=== PATIENT | female | born 1940 | race Caucasian/White ===

== ENCOUNTER 2022-02-10 07:52 | Day surgery (SDC) | payer MEDICARE, OTHER ==
[2022-02-10] MEDS ORDERED: Sodium Chloride 0.9% 10 ML Syringe FLUSH PRN (08:00)
[2022-02-10] MEDS: Lactated Ringers 1,000 ML IV SCH (08:30)
[2022-02-10] MEDS ORDERED: Midazolam 1 MG/ML 2 ML SDV ONE (08:48)
[2022-02-10] MEDS ORDERED: Propofol 200 MG/20 ML SDV ONE (08:48)
== END 2022-02-10 11:06 | disposition home or self-care (01) ==
LOC: KA.SDS 07:52
PROVIDERS: ATTEND Family Medicine
DX: Z12.11 Encounter for screening for malignant neoplasm of colon (principal); K64.8 Other hemorrhoids; K64.4 Residual hemorrhoidal skin tags; K57.30 Diverticulosis of large intestine without perforation or abscess without bleeding; F17.210 Nicotine dependence, cigarettes, uncomplicated; F41.9 Anxiety disorder, unspecified; J43.2 Centrilobular emphysema; E78.49 Other hyperlipidemia; E66.3 Overweight; G47.33 Obstructive sleep apnea (adult) (pediatric); Z98.890 Other specified postprocedural states; Z68.25 Body mass index [BMI] 25.0-25.9, adult; Z79.811 Long term (current) use of aromatase inhibitors; Z79.52 Long term (current) use of systemic steroids; Z79.51 Long term (current) use of inhaled steroids; Z80.0 Family history of malignant neoplasm of digestive organs; Z79.899 Other long term (current) drug therapy; Z20.822 Contact with and (suspected) exposure to COVID-19
CPT/HCPCS: 00812; J2250; J2704; J7120

== ENCOUNTER 2024-04-01 07:01 | Inpatient (IN) | payer MEDICARE, OTHER ==
[2024-04-01] MEDS ORDERED: Sodium Chloride 0.9% 10 ML Syringe FLUSH PRN (07:26)
[2024-04-01 07:40] LABS: BASOPHILS ABSOLUTE AUTO 0.04 10^3/uL (0.00-0.10); BASOPHILS PERCENT AUTO 0.4 % (0.0-1.0); EOSINOPHILS ABSOLUTE AUTO 0.16 10^3/uL (0.10-0.30); EOSINOPHILS PERCENT AUTO 1.5 % (1.0-3.0); HEMATOCRIT 36.8 % (37.0-47.0); HEMOGLOBIN 12.2 g/dL (12.0-16.0); IMMATURE GRAN ABSOLUTE AUTO 0.02 10^3/uL (0.00-0.50); IMMATURE GRAN PERCENT AUTO 0.2 % (0.0-5.0); LYMPHOCYTES ABSOLUTE AUTO 0.95 10^3/uL (1.00-4.00); LYMPHOCYTES PERCENT AUTO 9.2 % (20.0-40.0); MEAN CORPUSCULAR HEMOGLOBIN 30.7 pg (27.0-31.0); MEAN CORPUSCULAR HGB CONC 33.2 g/dL (32.0-36.0); MEAN CORPUSCULAR VOLUME 92.7 fL (82.0-92.0); MEAN PLATELET VOLUME 8.4 fL (7.4-10.4); MONOCYTES ABSOLUTE AUTO 1.09 10^3/uL (0.10-0.80); MONOCYTES PERCENT AUTO 10.5 % (2.0-8.0); NEUTROPHILS ABSOLUTE AUTO 8.08 10^3/uL (2.50-7.00); NEUTROPHILS PERCENT AUTO 78.2 % (50.0-70.0); PLATELET COUNT,PLT 307 10^3/uL (150-400); RED BLOOD CELL COUNT 3.97 10^6/uL (3.80-5.50); RED CELL DISTRIBUTION WIDTH 13.4 % (11.5-14.5); WHITE BLOOD CELL COUNT,WBC 10.34 10^3/uL (5.00-10.00)
[2024-04-01 08:00] LABS: ALBUMIN 2.37 g/dL (3.40-5.00); ANION GAP 10.6 mmol/L (5-15); BILIRUBIN TOTAL 0.6 mg/dL (0.2-1.0); C-REACTIVE PROTEIN 7.28 mg/dL (0.00-0.50); CALCIUM 8.1 mg/dL (8.7-10.3); CARBON DIOXIDE,CO2 28.9 mmol/L (21.0-32.0); CREATININE 0.72 mg/dL (0.51-1.17); EST CRCL DRUG DOSING (CG) 56.39 mL/min; POTASSIUM,K 3.5 mmol/L (3.5-5.1); PROTEIN TOTAL,TP 6.5 g/dL (6.4-8.2)
[2024-04-01 08:49] LABS: APPEARANCE,URINE CLEAR (CLEAR); BILIRUBIN,URINE NEGATIVE (NEGATIVE); COLOR,URINE YELLOW (YELLOW); GLUCOSE,URINE NEGATIVE (NEGATIVE); KETONES,URINE TRACE mg/dL (NEGATIVE); LEUKOCYTE ESTERASE,URINE NEGATIVE (NEGATIVE); NITRITE,URINE NEGATIVE (NEGATIVE); OCCULT BLOOD,URINE NEGATIVE (NEGATIVE); PROTEIN,URINE NEGATIVE (NEGATIVE); UROBILINOGEN,URINE 0.2 E.U./dL (0.2-1.0)
[2024-04-01 08:59] LABS: BACTERIA,URINE RARE /HPF (NONE TO FEW); EPITHELIAL CELLS,URINE RARE /LPF; RBC,URINE 0-5 /HPF (0-5); WBC,URINE 0-5 /HPF (0-5)
[2024-04-01] MEDS ORDERED: Sodium Chloride 0.9% 100 ML IV SCH (09:00)
[2024-04-01] MEDS: cefTRIAXone 2 GM Vial IVPUSH ONE (09:08)
[2024-04-01] MEDS: Azithromycin 500 MG in Sodium Chloride 0.9% 250 ML IV ONE (09:42)
[2024-04-01] MEDS ORDERED: Docusate Sodium 100 MG Cap PO PRN (10:32)
[2024-04-01] MEDS ORDERED: Ondansetron 4 MG/2 ML SDV IV PRN (10:32)
[2024-04-01] MEDS ORDERED: Ondansetron 4 MG Tab.DIS PO PRN (10:32)
[2024-04-01] MEDS ORDERED: Melatonin 3 MG Tab PO PRN (10:32)
[2024-04-01] MEDS ORDERED: AZELASTINE NAS PRN (10:39)
[2024-04-01] MEDS ORDERED: methylPREDNISolone Sod Succ 125 MG in Sodium Chloride 0.9% 250 ML IV SCH (11:30)
[2024-04-01] MEDS ORDERED: Cefepime 1 GM in Sodium Chloride 0.9% 50 ML IV SCH (11:30)
[2024-04-01] MEDS: methylPREDNISolone Sod Succ 125 MG in Sodium Chloride 0.9% 250 ML IV SCH (11:41)
[2024-04-01] MEDS: Acetaminophen 325 MG Tab PO PRN (13:35)
[2024-04-01] MEDS: Albuterol 0.083% 2.5 MG/3 ML Neb Soln NEB PRN (13:35)
[2024-04-01] MEDS: Tiotropium Bromide 4 GM Inhalation Spray (2.5mcg/1 dose; 10 doses) INH SCH (13:59)
[2024-04-01] MEDS: Albuterol/Ipratropium 3.0-0.5 MG/3 ML Neb Soln NEB SCH (16:58)
[2024-04-01] MEDS: Escitalopram 10 MG Tab PO SCH (20:57)
[2024-04-01] MEDS: Doxycycline Monohydrate 100 MG Cap PO SCH (20:57)
[2024-04-01] MEDS: Cefepime 1 GM in Sodium Chloride 0.9% 50 ML IV SCH (21:17)
[2024-04-01] MEDS: Sodium Chloride 0.9% 10 ML Syringe FLUSH PRN (21:20)
[2024-04-02 06:57] LABS: BASOPHILS ABSOLUTE AUTO 0.01 10^3/uL (0.00-0.10); BASOPHILS PERCENT AUTO 0.1 % (0.0-1.0); HEMATOCRIT 34.6 % (37.0-47.0); HEMOGLOBIN 11.3 g/dL (12.0-16.0); IMMATURE GRAN ABSOLUTE AUTO 0.04 10^3/uL (0.00-0.50); IMMATURE GRAN PERCENT AUTO 0.3 % (0.0-5.0); LYMPHOCYTES ABSOLUTE AUTO 0.71 10^3/uL (1.00-4.00); LYMPHOCYTES PERCENT AUTO 6.1 % (20.0-40.0); MEAN CORPUSCULAR HEMOGLOBIN 30.5 pg (27.0-31.0); MEAN CORPUSCULAR HGB CONC 32.7 g/dL (32.0-36.0); MEAN CORPUSCULAR VOLUME 93.3 fL (82.0-92.0); MEAN PLATELET VOLUME 8.6 fL (7.4-10.4); MONOCYTES ABSOLUTE AUTO 0.69 10^3/uL (0.10-0.80); MONOCYTES PERCENT AUTO 5.9 % (2.0-8.0); NEUTROPHILS ABSOLUTE AUTO 10.17 10^3/uL (2.50-7.00); NEUTROPHILS PERCENT AUTO 87.6 % (50.0-70.0); PLATELET COUNT,PLT 280 10^3/uL (150-400); RED BLOOD CELL COUNT 3.71 10^6/uL (3.80-5.50); RED CELL DISTRIBUTION WIDTH 13.3 % (11.5-14.5); WHITE BLOOD CELL COUNT,WBC 11.62 10^3/uL (5.00-10.00)
[2024-04-02 07:11] LABS: ANION GAP 12.1 mmol/L (5-15); CALCIUM 7.9 mg/dL (8.7-10.3); CARBON DIOXIDE,CO2 28.4 mmol/L (21.0-32.0); CREATININE 0.69 mg/dL (0.51-1.17); EST CRCL DRUG DOSING (CG) 58.85 mL/min; MAGNESIUM 1.7 mg/dL (1.8-2.4); POTASSIUM,K 3.5 mmol/L (3.5-5.1)
[2024-04-02] MEDS: Omeprazole 20 MG Cap.CR PO SCH (08:14)
[2024-04-02] MEDS: Magnesium Oxide 500 MG Tab PO ONE (08:55)
[2024-04-02] MEDS: Potassium Chloride 20 MEQ Tab.ER PO ONE (08:55)
[2024-04-02] MEDS: Furosemide 40 MG/4 ML VIAL IVPUSH ONE (08:57)
[2024-04-02] MEDS: metroNIDAZOLE/Normal Saline 500 MG in Premix Bag 1 BAG IV SCH ×2 (11:30→11:45)
[2024-04-02] MEDS: AZELASTINE NAS PRN (18:00)
[2024-04-03 07:09] LABS: ANION GAP 11.9 mmol/L (5-15); CALCIUM 8.4 mg/dL (8.7-10.3); CARBON DIOXIDE,CO2 27.5 mmol/L (21.0-32.0); CREATININE 0.74 mg/dL (0.51-1.17); EST CRCL DRUG DOSING (CG) 54.87 mL/min; POTASSIUM,K 4.4 mmol/L (3.5-5.1)
[2024-04-03 07:12] LABS: HEMATOCRIT 34.4 % (37.0-47.0); HEMOGLOBIN 11.2 g/dL (12.0-16.0); IMMATURE GRAN ABSOLUTE AUTO 0.08 10^3/uL (0.00-0.50); IMMATURE GRAN PERCENT AUTO 0.4 % (0.0-5.0); LYMPHOCYTES PERCENT AUTO 5.6 % (20.0-40.0); MEAN CORPUSCULAR HEMOGLOBIN 30.6 pg (27.0-31.0); MEAN CORPUSCULAR HGB CONC 32.6 g/dL (32.0-36.0); MEAN PLATELET VOLUME 8.5 fL (7.4-10.4); MONOCYTES ABSOLUTE AUTO 1.17 10^3/uL (0.10-0.80); MONOCYTES PERCENT AUTO 5.5 % (2.0-8.0); NEUTROPHILS ABSOLUTE AUTO 18.93 10^3/uL (2.50-7.00); NEUTROPHILS PERCENT AUTO 88.5 % (50.0-70.0); PLATELET COUNT,PLT 320 10^3/uL (150-400); RED BLOOD CELL COUNT 3.66 10^6/uL (3.80-5.50); RED CELL DISTRIBUTION WIDTH 13.7 % (11.5-14.5)
[2024-04-03 07:13] LABS: WHITE BLOOD CELL COUNT,WBC 21.38 10^3/uL (5.00-10.00)
[2024-04-03] MEDS: Doxycycline Monohydrate 100 MG Cap PO ONE (08:28)
[2024-04-03] MEDS: predniSONE 20 MG Tab PO SCH (08:28)
[2024-04-03] MEDS: Amoxicillin/Clavulanate K 875-125 MG Tab PO SCH (08:29)
[2024-04-03] MEDS: Psyllium Husk Powder Sugar Free 5.85 GM Packet PO SCH (08:37)
[2024-04-03] MEDS: Sodium Chloride 0.65% Nasal Spray 45 ML Bottle NAS PRN (16:58)
[2024-04-03] MEDS: Famotidine 20 MG Tab PO SCH (20:17)
[2024-04-04 06:59] LABS: EOSINOPHILS ABSOLUTE AUTO 0.01 10^3/uL (0.10-0.30); EOSINOPHILS PERCENT AUTO 0.1 % (1.0-3.0); HEMATOCRIT 38.1 % (37.0-47.0); HEMOGLOBIN 12.3 g/dL (12.0-16.0); IMMATURE GRAN ABSOLUTE AUTO 0.07 10^3/uL (0.00-0.50); IMMATURE GRAN PERCENT AUTO 0.4 % (0.0-5.0); LYMPHOCYTES ABSOLUTE AUTO 2.54 10^3/uL (1.00-4.00); LYMPHOCYTES PERCENT AUTO 14.7 % (20.0-40.0); MEAN CORPUSCULAR HEMOGLOBIN 30.7 pg (27.0-31.0); MEAN CORPUSCULAR HGB CONC 32.3 g/dL (32.0-36.0); MEAN PLATELET VOLUME 8.7 fL (7.4-10.4); MONOCYTES ABSOLUTE AUTO 1.31 10^3/uL (0.10-0.80); MONOCYTES PERCENT AUTO 7.6 % (2.0-8.0); NEUTROPHILS ABSOLUTE AUTO 13.36 10^3/uL (2.50-7.00); NEUTROPHILS PERCENT AUTO 77.2 % (50.0-70.0); PLATELET COUNT,PLT 355 10^3/uL (150-400); RED BLOOD CELL COUNT 4.01 10^6/uL (3.80-5.50); RED CELL DISTRIBUTION WIDTH 13.9 % (11.5-14.5); WHITE BLOOD CELL COUNT,WBC 17.29 10^3/uL (5.00-10.00)
[2024-04-04 07:15] LABS: ANION GAP 10.9 mmol/L (5-15); CALCIUM 8.5 mg/dL (8.7-10.3); CARBON DIOXIDE,CO2 30.1 mmol/L (21.0-32.0); CREATININE 0.78 mg/dL (0.51-1.17); EST CRCL DRUG DOSING (CG) 52.06 mL/min; MAGNESIUM 1.8 mg/dL (1.8-2.4)
[2024-04-04] MEDS: Magnesium Oxide 500 MG Tab PO ONE (08:00)
== END 2024-04-04 14:23 | disposition home or self-care (01) | DRG 194 ==
LOC: SUPCPDRO 07:01 → KA.ED 07:01 → KA.MS 09:03
PROVIDERS: ADMIT Family Medicine; ATTEND Family Medicine
DX: J18.9 Pneumonia, unspecified organism (principal); J44.0 Chronic obstructive pulmonary disease with (acute) lower respiratory infection; J44.1 Chronic obstructive pulmonary disease with (acute) exacerbation; F32.A Depression, unspecified; Z66 Do not resuscitate; G47.30 Sleep apnea, unspecified; E78.00 Pure hypercholesterolemia, unspecified; H91.90 Unspecified hearing loss, unspecified ear; H54.7 Unspecified visual loss; G43.909 Migraine, unspecified, not intractable, without status migrainosus; R91.1 Solitary pulmonary nodule; R09.02 Hypoxemia; Z99.81 Dependence on supplemental oxygen; Z98.49 Cataract extraction status, unspecified eye; Z79.52 Long term (current) use of systemic steroids; Z98.890 Other specified postprocedural states; Z87.891 Personal history of nicotine dependence; Z79.899 Other long term (current) drug therapy
CPT/HCPCS: 36415; 71045; 71250; 80048; 80053; 81001; 83605; 83735; 83880; 84145; 84484; 85025; 86140; 87040; 92610-GN; 93005; 93010; 94640; 99223-GT; 99232-GT; 99233-GT; 99239-GT; 99284; 99285; A9270-GY; J0456; J0692; J0696; J1836; J1940; J2919; J3490; J7050; J7512; J7613-GY; J7620-GY; Q3014

== ENCOUNTER 2025-06-06 08:42 | Day surgery (SDC) | payer MEDICARE, OTHER ==
[2025-06-06] MEDS: Sodium Chloride 0.9% 10 ML Syringe FLUSH PRN (09:07)
[2025-06-06] MEDS: Lactated Ringers 1,000 ML IV SCH (09:08)
[2025-06-06] MEDS ORDERED: Midazolam 1 MG/ML 2 ML SDV ONE (09:27)
[2025-06-06] MEDS ORDERED: Propofol 200 MG/20 ML SDV ONE (09:27)
[2025-06-06 11:54] VITALS: BP 108/44; PULSE 54
== END 2025-06-06 11:57 | disposition home or self-care (01) ==
LOC: KA.SDS 08:42
PROVIDERS: ATTEND Family Medicine
DX: K52.832 Lymphocytic colitis (principal); K57.30 Diverticulosis of large intestine without perforation or abscess without bleeding; K64.4 Residual hemorrhoidal skin tags; K64.8 Other hemorrhoids
CPT/HCPCS: 00811; 88305; 99100; J2250; J2704; J7120